=== PATIENT | female | born 1965 | race Caucasian/White ===

== ENCOUNTER 2021-04-14 01:24 | Inpatient (IN) | payer MEDICAID ==
[~2021-04-14] VITALS: Ht 172.7 cm; Wt 54.5 kg
[2021-04-14] VITALS (11 sets, daily range): BP systolic 90–112; BP diastolic 41–67
[~2021-04-14 01:24] MED LIST: CIP250T PO; LORA2TAB96 PO
[2021-04-14] MEDS ORDERED: ondansetron 4mg rapidly disintigrating tab PO STA (02:23)
[2021-04-14] MEDS ORDERED: ketorolac trometh inj. 60 MG/2 ML VIAL IM STA (02:23)
[2021-04-14] MEDS ORDERED: tamsulosin 0.4mg capsule PO STA (02:23)
[2021-04-14 02:47] LABS: BASOPHILS # (AUTO) 0.1 X10'3 (0-0.2); BASOPHILS % (AUTO) 0.4 % (0-1); EOSINOPHILS # (AUTO) 0.2 X10'3 (0-0.9); HEMATOCRIT 45.4 % (35.0-45.0); LYMPHOCYTES # (AUTO) 1.7 X10'3 (1.1-4.8); LYMPHOCYTES % (AUTO) 10.4 % (21-51); MEAN CORPUSCULAR VOLUME 87.8 FL (78-98); MEAN PLATELET VOLUME 10.8 FL (7.4-10.4); MONOCYTES # (AUTO) 0.3 X10'3 (0-0.9); MONOCYTES % (AUTO) 1.9 % (2-12); NEUTROPHILS # (AUTO) 14.1 X10'3 (1.8-7.7); NEUTROPHILS % (AUTO) 86.3 % (42-75); PLATELET COUNT 177 X10'3 (140-440); RED BLOOD COUNT 5.17 X10'6 (4.20-5.60); RED CELL DISTRIBUTION WIDTH 13.1 % (11.5-14.5); WHITE BLOOD COUNT 16.4 X10'3 (4.5-11.0)
[2021-04-14 02:51] LABS: CLARITY,URINE CLOUDY (Clear); COLOR,URINE YELLOW (Yellow); GLUCOSE, URINE NEGATIVE (Neg); KETONES,URINE NEGATIVE (Neg); LEUKOCYTE ESTERASE ,URINE MODERATE (Neg); NITRITES, URINE POSITIVE (Neg); OCCULT BLOOD,URINE MODERATE (Neg); PROTEIN,URINE 30 mg/dl (Neg); UROBILINOGEN,URINE 0.2 E.U/dL (0.2-1.0)
[2021-04-14 02:53] LABS: UA COLLECTION TYPE CLN CATCH MIDSTREAM
[2021-04-14 03:00] LABS: ALANINE AMINOTRANSFERASE 15 U/L (12-78); ALBUMIN/GLOBULIN RATIO 1.3 (1.1-1.5); ALKALINE PHOSPHATASE 128 IU/L (46-116); ANION GAP 8 (8-16); ASPARTATE AMINO TRANSFERASE 14 U/L (10-37); BILIRUBIN,TOTAL 0.5 MG/DL (0.1-1.0); BLOOD UREA NITROGEN 11 MG/DL (7-18); BUN/CREATININE RATIO 13.1 (6.6-38.0); CALCIUM 8.9 MG/DL (8.5-10.1); CHLORIDE 102 MMOL/L (99-107); CREATININE 0.84 MG/DL (0.40-0.90); GLUCOSE 104 MG/DL (70-104); LIPASE 156 U/L (73-393); POTASSIUM 3.5 MMOL/L (3.5-5.1); SODIUM 139 MMOL/L (135-145); TOTAL CARBON DIOXIDE 29.3 MMOL/L (24-32); TOTAL PROTEIN 7.1 G/DL (6.4-8.2); eGFR 70 ML/MIN
[2021-04-14 03:19] LABS: BACTERIA,URINE 2+ /HPF (Neg); MUCUS STRANDS NONE SEEN /LPF (Neg); SQUAMOUS EPITHELIAL CELL,UR FEW /LPF (FEW); WBC,URINE TNTC /HPF (0-4)
[2021-04-14 03:20] LABS: CAL OXALATE CRYSTALS 2+ /HPF (NEGATIVE)
[2021-04-14] MEDS ORDERED: CefTRIAXone 2gm/D5W 50ml BAG 50 ML IV ONE (04:20)
[2021-04-14] MEDS ORDERED: normal saline 1000ML IV soln IV ONE (04:20)
[2021-04-14] MEDS ORDERED: ALPR2TAB7 PO (05:27)
[2021-04-14 06:02] LABS: PLATELET ESTIMATE NORMAL
[2021-04-14 06:03] LABS: LARGE PLATELETS FEW
[2021-04-14] MEDS ORDERED: mag hydrox/Alum hydrox/simeth 30ml oral suspension PO PRN (07:15)
[2021-04-14] MEDS ORDERED: HYDROcodone/acetaminophen 5mg/325mg tablet PO PRN (07:15)
[2021-04-14] MEDS ORDERED: morphine 2 MG/ML inj. syringe IV PRN ×2 (07:15)
[2021-04-14] MEDS ORDERED: ondansetron/PF 4mg/2ml inj IV PRN ×2 (07:15→15:05)
[2021-04-14] MEDS ORDERED: acetaminophen 325mg tablet PO PRN ×2 (07:15)
[2021-04-14] MEDS ORDERED: magnesium hydroxide 30ml (MOM) UD suspension PO PRN (07:15)
[2021-04-14] MEDS ORDERED: HYDROcodone/acetaminophen 10/325mg tab PO PRN (07:15)
--- NOTE | 2021-04-14 08:00 | NUR ---
dr. patten at bedside. will be putting stent left kidney. per pt will be done today
[2021-04-14] MEDS: docusate sod 100mg capsule PO SCH ×2 (08:37→21:52)
[2021-04-14] MEDS: normal saline 1000ml 1,000 ML IV SCH ×2 (08:37→17:15)
[2021-04-14] MEDS: ALPRAZolam 0.5mg tablet PO SCH ×4 (08:37→21:51)
--- NOTE | 2021-04-14 14:38 | NUR ---
PT REFUSED 2MG XANAX. STATES, "I ONLY TAKE 1MG XANAX. PT TOOK XANAX 1MG PO.
[2021-04-14] MEDS ORDERED: iohexol 300 MG/1 ML 50ml polymer ONE (15:03)
[2021-04-14] MEDS ORDERED: labetalol 20mg/4ml (5mg/ml) syringe IV PRN (15:05)
[2021-04-14] MEDS ORDERED: acetaminophen 1,000mg/100ml IV 100 ML IV PRN (15:05)
[2021-04-14] MEDS ORDERED: meperidine/PF 25mg/ml syringe IV PRN ×2 (15:05)
[2021-04-14] MEDS ORDERED: proCHLORperazine 10 MG/2 ml inj IV PRN (15:05)
[2021-04-14] MEDS ORDERED: hydrALAZINE 20mg/ml inj. IV PRN (15:05)
[2021-04-14] MEDS ORDERED: ringers solution, lacted 1,000 ML IV SCH (15:05)
[2021-04-14] MEDS ORDERED: HYDROmorphone/PF 0.2 MG/ML SYRINGE IV PRN ×2 (15:05)
--- NOTE | 2021-04-14 15:23 | NUR ---
X-ray and Pre-op PTT cancelled by OR charge nurse states they are not needed. Pt will be going to OR for surgery.
--- NOTE | 2021-04-14 15:26 | NUR ---
Pt going to OR
[2021-04-14] MEDS ORDERED: sevoflurane 250ml liquid IH ONE (15:34)
[2021-04-14] MEDS ORDERED: famotidine/PF 10 mg/ml inj IV ONE (15:40)
[2021-04-14] MEDS ORDERED: fentaNYL/PF 50MCG/1 ML 2ML syringe ONE (15:44)
[2021-04-14] MEDS ORDERED: midazolam 1 mg/ML 2ml injection ONE (15:44)
[2021-04-14] MEDS ORDERED: ePHEDrine 50MG/ML INJ. ONE (16:09)
[2021-04-14] MEDS ORDERED: LIDOcaine 2% (20mg/ml) 5ml vial ONE (16:09)
[2021-04-14] MEDS ORDERED: propofol inj 20 ML IV ONE (16:09)
[2021-04-14] MEDS ORDERED: 0.9 % SODIUM CHLORIDE 10 ML VIAL ONE (16:12)
[2021-04-14] MEDS ORDERED: dexamethasone sod phosphate 4mg/ml inj. ONE (16:14)
[2021-04-14] MEDS ORDERED: ondansetron/PF 4mg/2ml inj ONE (16:15)
--- NOTE | 2021-04-14 16:20 | NUR ---
Received from OR via BED, accompanied by Anesthesiologist BRENNEN and report given by Anesthesiolgist. PT DROWSY, OXYGENATING WELL ON 10 LPM O2 VIA MASK, NO RESP DISTRESS NOTED. DENIES NAUSEA OR PAIN AT THIS TIME. VSS.
[2021-04-14] MEDS ORDERED: ringers solution, lacted 1,000 ML IV ONE (16:40)
--- NOTE | 2021-04-14 17:38 | NUR ---
Received report from recovery, pt is stable and in no distress. pt received a bolus 1 liter, BP stable at 107/67. NO pain. Pt is A & o x4 and eating juice, crackers and ready to go home. New IV started, 18G.
--- NOTE | 2021-04-14 17:50 | NUR ---
PT WAS GIVEN FLUID BOLUS IN PACU FOR HYPOTENSION IN THE 90'S. BP IMPROVED AFTER THE BOLUS WAS GIVEN, SYSTOLIC IN 110'S. VSS, TOLERATING PO FLUIDS WELL. DENIES ANY PAIN AT ALL. TRANSFERRED TO ORTHO FLOOR IN STABLE CONDITION. REPORT GIVEN TO RECEIVING NURSE.
--- NOTE | 2021-04-14 18:00 | NUR ---
Patient in room ORTHO 4006. I have received report from Estela TELLO and had the opportunity to ask questions and assume patient care. Addendum: 04/14/21 at 1902 by Francia Rose RN Amended: Links added.
--- NOTE | 2021-04-14 18:35 | NUR ---
Problems reprioritized. Patient report given, questions answered & plan of care reviewed with Francia TELLO.
--- NOTE | 2021-04-14 18:38 | NUR ---
PAGER ID: [phone] MESSAGE: Yvette Montemayor #[id number] - Pt has Xanax 2mg schedule. Pt states her dose is 1mg she cuts her pills in 1/2/ Can we change it to 1 mg? please and thank you. Estela hwang [phone]
--- NOTE | 2021-04-14 21:50 | NUR ---
Pt. laying in bed awake A & O at this time: denies pain or N/V. Bed i low position ans call light within reach. Addendum: 04/15/21 at 0639 by Francia Rose RN Amended: Links added.
[2021-04-15] MEDS: normal saline 1000ml 1,000 ML IV SCH ×2 (00:14→13:39)
[2021-04-15 02:00] VITALS: BP 107/60
[2021-04-15 05:55] LABS: BASOPHILS % (AUTO) 0.1 % (0-1); EOSINOPHILS % (AUTO) 0 % (0-6); HEMATOCRIT 38.5 % (35.0-45.0); HEMOGLOBIN 12.6 g/dl (12.0-16.0); LYMPHOCYTES # (AUTO) 0.7 X10'3 (1.1-4.8); LYMPHOCYTES % (AUTO) 3.9 % (21-51); MEAN CORPUSCULAR HGB CONC 32.6 g/dL (33.0-36.5); MEAN PLATELET VOLUME 11.2 FL (7.4-10.4); MONOCYTES # (AUTO) 0.9 X10'3 (0-0.9); MONOCYTES % (AUTO) 4.9 % (2-12); NEUTROPHILS # (AUTO) 16.3 X10'3 (1.8-7.7); NEUTROPHILS % (AUTO) 91.1 % (42-75); PLATELET COUNT 104 X10'3 (140-440); RED BLOOD COUNT 4.33 X10'6 (4.20-5.60); RED CELL DISTRIBUTION WIDTH 13.6 % (11.5-14.5); WHITE BLOOD COUNT 17.9 X10'3 (4.5-11.0)
--- NOTE | 2021-04-15 06:00 | NUR ---
Problems reprioritized. Patient report given, questions answered & plan of care reviewed with Estela TELLO. Addendum: 04/15/21 at 0640 by Francia Rose RN Amended: Links added.
[2021-04-15 06:11] LABS: ALBUMIN 2.7 G/DL (3.4-5.0); ANION GAP 11 (8-16); BLOOD UREA NITROGEN 12 MG/DL (7-18); BUN/CREATININE RATIO 12.1 (6.6-38.0); CALCIUM 7.7 MG/DL (8.5-10.1); CHLORIDE 112 MMOL/L (99-107); CREATININE 0.99 MG/DL (0.40-0.90); GLUCOSE 139 MG/DL (70-104); POTASSIUM 4.3 MMOL/L (3.5-5.1); SODIUM 144 MMOL/L (135-145); TOTAL CARBON DIOXIDE 21.1 MMOL/L (24-32); eGFR 58 ML/MIN
[2021-04-15 06:30] VITALS: BP 97/58
--- NOTE | 2021-04-15 06:30 | NUR ---
Patient in room ORTHO 4014. I have received report from Francia TELLO and had the opportunity to ask questions and assume patient care.
[2021-04-15 07:49] LABS: TOTAL CELLS COUNTED 100
[2021-04-15 07:50] LABS: LARGE PLATELETS FEW; PLATELET ESTIMATE DECREASED
[2021-04-15] MEDS: docusate sod 100mg capsule PO SCH ×2 (08:29→21:05)
[2021-04-15] MEDS: ALPRAZolam 0.5mg tablet PO SCH ×3 (08:29→21:05)
[2021-04-15 10:00] VITALS: BP 104/60
[2021-04-15] MEDS: CefTRIAXone/D5W-Rocephin 1gm 50 ML IV SCH (10:09)
[2021-04-15 18:00] VITALS: BP 115/94
--- NOTE | 2021-04-15 18:27 | NUR ---
Problems reprioritized. Patient report given, questions answered & plan of care reviewed with javon TELLO.
[2021-04-15] MEDS: lactobacillus rhamnosus 10,000 MMU CELLS/CAPSULE PO SCH (21:05)
[2021-04-15 22:00] VITALS: BP 124/74
[2021-04-16] MEDS: normal saline 1000ml 1,000 ML IV SCH ×2 (04:53→09:15)
[2021-04-16 06:00] VITALS: BP 139/73
[2021-04-16 06:08] LABS: BASOPHILS % (AUTO) 0.3 % (0-1); EOSINOPHILS # (AUTO) 0.1 X10'3 (0-0.9); EOSINOPHILS % (AUTO) 0.7 % (0-6); HEMATOCRIT 37.4 % (35.0-45.0); HEMOGLOBIN 12.3 g/dl (12.0-16.0); LYMPHOCYTES % (AUTO) 16.5 % (21-51); MEAN CORPUSCULAR HEMOGLOBIN 28.9 PG (27.0-31.0); MEAN CORPUSCULAR HGB CONC 32.8 g/dL (33.0-36.5); MEAN CORPUSCULAR VOLUME 88.3 FL (78-98); MEAN PLATELET VOLUME 11.6 FL (7.4-10.4); MONOCYTES # (AUTO) 0.8 X10'3 (0-0.9); MONOCYTES % (AUTO) 6.7 % (2-12); NEUTROPHILS # (AUTO) 9.3 X10'3 (1.8-7.7); NEUTROPHILS % (AUTO) 75.8 % (42-75); PLATELET COUNT 109 X10'3 (140-440); RED BLOOD COUNT 4.24 X10'6 (4.20-5.60); RED CELL DISTRIBUTION WIDTH 13.4 % (11.5-14.5); WHITE BLOOD COUNT 12.3 X10'3 (4.5-11.0)
[2021-04-16 06:29] LABS: ALBUMIN 2.7 G/DL (3.4-5.0); ANION GAP 10 (8-16); BLOOD UREA NITROGEN 13 MG/DL (7-18); BUN/CREATININE RATIO 15.9 (6.6-38.0); CALCIUM 7.8 MG/DL (8.5-10.1); CHLORIDE 111 MMOL/L (99-107); CREATININE 0.82 MG/DL (0.40-0.90); GLUCOSE 104 MG/DL (70-104); POTASSIUM 3.7 MMOL/L (3.5-5.1); SODIUM 146 MMOL/L (135-145); TOTAL CARBON DIOXIDE 25.2 MMOL/L (24-32); eGFR 72 ML/MIN
--- NOTE | 2021-04-16 06:30 | NUR ---
Patient in room ORTHO 4014A. I have received report from OMER CHATMAN and had the opportunity to ask questions and assume patient care.
[2021-04-16] MEDS: CefTRIAXone/D5W-Rocephin 1gm 50 ML IV SCH (07:46)
[2021-04-16] MEDS: lactobacillus rhamnosus 10,000 MMU CELLS/CAPSULE PO SCH (07:46)
[2021-04-16] MEDS: docusate sod 100mg capsule PO SCH (07:46)
[2021-04-16] MEDS: ALPRAZolam 0.5mg tablet PO SCH (07:46)
[2021-04-16 10:00] VITALS: BP 108/61
[2021-04-16] MEDS ORDERED: CIPR-202 PO (11:02)
--- NOTE | 2021-04-16 12:00 | NUR ---
D/C INSTRUCTIONS GIVEN, QUESTIONS ANSWERED. BELONGINGS GATHERED BY PT AND SENT WITH PT. IV D/C'D, CANNULA INTACT, NO COMPLICATIONS. D/C'D PT IN STABLE CONDITION TO HOME IN PRIVATE VEHICLE ACCOMPANIED BY SPOUSE. PT LEFT FLOOR AT 1145.
== END 2021-04-16 11:45 | disposition home or self-care (01) | DRG 720 ==
LOC: ER 01:25 → ED HOLD 07:19 → ORTHO 4S 14:00
PROVIDERS: ADMIT Internal Medicine; ATTEND Internal Medicine
PROC: 0T778DZ Dilation of Left Ureter with Intraluminal Device, Via Natural or Artificial Opening Endoscopic (ICD-10-PCS; principal; 2021-04-14 15:34)
DX: A41.9 Sepsis, unspecified organism (principal); D69.6 Thrombocytopenia, unspecified; N13.6 Pyonephrosis; F17.210 Nicotine dependence, cigarettes, uncomplicated; N20.2 Calculus of kidney with calculus of ureter; Z20.822 Contact with and (suspected) exposure to COVID-19; F41.9 Anxiety disorder, unspecified; Z88.5 Allergy status to narcotic agent; Z88.8 Allergy status to other drugs, medicaments and biological substances; Z79.899 Other long term (current) drug therapy
CPT/HCPCS: 36415; 74018; 74176; 76000; 80048; 80053; 81001; 82948; 83605; 83690; 84145; 85007; 85008; 85025; 87040; 87077; 87088; 87186; 87635; 93005; 96365; 96372; 99285; A4618; C1769; C2617; G0378; J0696; J1100; J1885; J2001; J2250; J2270; J2405; J2704; J3010; J3490; J7030; J7120; Q9967

== ENCOUNTER 2021-07-06 13:53 | Emergency (ER) | payer MEDICAID ==
[~2021-07-06] VITALS: Ht 172.7 cm; Wt 52.7 kg
[~2021-07-06 13:53] MED LIST changes: +ALPR2TAB7 PO; -CIP250T PO; -LORA2TAB96 PO
[2021-07-06 14:27] VITALS: BP 127/36
[2021-07-06] MEDS ORDERED: HYDR-3972 PO (14:41)
[2021-07-06] MEDS ORDERED: LIDOcaine 5% patch TP STA (14:43)
== END 2021-07-06 16:23 | disposition home or self-care (01) ==
LOC: ER 13:54
DX: R07.81 Pleurodynia (principal); R07.89 Other chest pain; F41.9 Anxiety disorder, unspecified; Z98.890 Other specified postprocedural states; Z88.1 Allergy status to other antibiotic agents; Z88.5 Allergy status to narcotic agent; Z79.899 Other long term (current) drug therapy
CPT/HCPCS: 71045; 99283

== ENCOUNTER 2024-04-13 21:37 | Emergency (ER) | payer MEDICAID ==
[~2024-04-13] VITALS: Ht 172.7 cm; Wt 67.9 kg
[2024-04-13] MEDS: ketorolac trometh 30MG/ML vial 30 MG/ML VIAL IM ONE (23:01)
[2024-04-13] MEDS: ondansetron 4mg rapidly disintigrating tab PO ONE (23:01)
[2024-04-13] MEDS: HYDROcodone/acetaminophen 5mg/325mg tablet PO ONE (23:04)
[2024-04-13 23:15] VITALS: BP 134/68; PULSE 74; RESP 18; TEMP 98.7; O2SAT 96
== END 2024-04-13 23:16 | disposition home or self-care (01) ==
LOC: ER 21:37
DX: S20.212A Contusion of left front wall of thorax, initial encounter (principal); R07.89 Other chest pain; R07.81 Pleurodynia; F41.9 Anxiety disorder, unspecified; Z88.5 Allergy status to narcotic agent; Z88.1 Allergy status to other antibiotic agents; Z79.899 Other long term (current) drug therapy; W19.XXXA Unspecified fall, initial encounter; Y93.89 Activity, other specified; Y92.89 Other specified places as the place of occurrence of the external cause; Y99.8 Other external cause status
CPT/HCPCS: 71046; 96372; 99284; J1885

== ENCOUNTER 2024-04-19 20:51 | Emergency (ER) | payer MEDICAID ==
[~2024-04-19] VITALS: Ht 172.7 cm; Wt 68.0 kg
[2024-04-19] MEDS ORDERED: HYDR-3965 PO (21:45)
[2024-04-19] MEDS: ketorolac trometh 30MG/ML vial 30 MG/ML VIAL IM ONE (22:03)
[2024-04-19] MEDS: acetaminophen 325mg tablet PO ONE (22:04)
[2024-04-19 22:15] VITALS: BP 133/73; PULSE 77; RESP 16; TEMP 98.4; O2SAT 96
== END 2024-04-19 22:20 | disposition home or self-care (01) ==
LOC: ER 20:52
DX: R07.81 Pleurodynia (principal); F41.9 Anxiety disorder, unspecified; Z88.5 Allergy status to narcotic agent; Z88.1 Allergy status to other antibiotic agents; Z79.899 Other long term (current) drug therapy
CPT/HCPCS: 71046; 96372; 99283; J1885